=== PATIENT | male | born 1945 | race Caucasian/White ===

== ENCOUNTER 2020-12-12 03:04 | Inpatient (IN) | payer MEDICARE, OTHER ==
[~2020-12-12] VITALS: Ht 180.3 cm; Wt 93.0 kg
[~2020-12-12 03:04] MED LIST: GINKO BILOBA
[2020-12-12 03:38] LABS: BASOPHILS ABSOLUTE AUTO 0.06 K/mm3 (0.00-0.23); BASOPHILS PERCENT AUTO 1 % (0-2); EOSINOPHILS ABSOLUTE AUTO 0.22 K/mm3 (0.00-0.68); EOSINOPHILS PERCENT AUTO 2 % (0-6); Hematocrit 45.9 % (37.0-53.0); Hemoglobin 15.6 g/dL (13.5-17.5); IMMATURE GRAN ABSOLUTE AUTO 0.03 K/mm3 (0.00-0.10); IMMATURE GRAN PERCENT AUTO 0 % (0-1); LYMPHOCYTES ABSOLUTE AUTO 1.09 K/mm3 (0.84-5.20); LYMPHOCYTES PERCENT AUTO 10 % (21-46); MONOCYTES ABSOLUTE AUTO 1.16 K/mm3 (0.16-1.47); MONOCYTES PERCENT AUTO 11 % (4-13); Mean Corpuscular HGB 30.7 pg (26.0-34.0); Mean Corpuscular Volume 90 fL (80-100); Mean Platelet Volume 9.3 fL (9.1-12.4); NEUTROPHILS ABSOLUTE AUTO 8.13 K/mm3 (1.96-9.15); NEUTROPHILS PERCENT AUTO 76 % (41-73); Platelet Count 292 K/mm3 (150-400); RDW Standard Deviation 43.2 fL (35.1-46.3); Red Blood Cell Count 5.08 M/mm3 (4.30-5.90); White Blood Cell Count 10.69 K/mm3 (4.00-11.30)
[2020-12-12 03:53] LABS: International Normalized Ratio 2.89; Prothrombin Time Results 29.1 Sec (9.7-11.5)
[2020-12-12 04:21] LABS: Alanine Aminotransfer (ALT/SGP 21 U/L (12-78); Albumin, Blood 3.6 g/dL (3.4-5.0); Albumin/Globulin Ratio 0.9 (0.8-1.8); Alk Phos 34 U/L (50-136); Anion Gap 6 mmol/L (6-16); Aspartate Aminotrans (AST/SGOT 14 U/L (12-37); Bilirubin, Total 0.9 mg/dL (0.1-1.0); Blood Urea Nitrogen 23 mg/dL (8-24); CO2, Blood 24 mmol/L (21-32); Calcium, Blood 8.9 mg/dL (8.5-10.1); Chloride, Blood 105 mmol/L (98-108); Creatinine, Blood 1.53 mg/dL (0.60-1.20); Digoxin (Lanoxin) 0.56 ug/mL (0.80-2.00); Globulin, Blood 4.1 g/dL (2.2-4.0); Glomerular Filtration Rate 47 (60-); Glucose, Blood 120 mg/dL (70-99); Potassium, Blood 4.5 mmol/L (3.5-5.5); Sodium, Blood 135 mmol/L (136-145); Total Protein, Blood 7.7 g/dL (6.4-8.2)
[2020-12-12] MEDS ORDERED: WARF5 (05:40)
[2020-12-12] MEDS ORDERED: HYDCHL50 PO (05:41)
[2020-12-12] MEDS ORDERED: Coreg12.5 MG PO (05:41)
[2020-12-12] MEDS ORDERED: TAMS.4ER PO (05:41)
[2020-12-12] MEDS ORDERED: LISI20 PO (05:41)
[2020-12-12] MEDS ORDERED: WARF7.5 (05:41)
[2020-12-12] MEDS ORDERED: THERA-D2000 UNIT PO (05:42)
[2020-12-12] MEDS ORDERED: MULTI-VITAMIN1 EAC2 PO (05:42)
[2020-12-12 05:59] LABS: Source, Urine Voided
[2020-12-12 06:20] LABS: Appearance, Urine Clear (Clear); Bilirubin, Urine Neg (Neg); Blood, Urine 1+ (Neg); Color, Urine Yellow (P-Yellow); Glucose Qualitative, Urine Neg (Neg); Ketones, Urine 2+ (Neg); Leukocyte Esterase, Urine Neg (Neg); Nitrite, Urine Neg (Neg); Protein, Urine Neg (Neg); Specific Gravity, Urine 1.015 (1.003-1.022); Urobilinogen, Urine NORM (Normal)
[2020-12-12 06:21] LABS: White Blood Cells, Urine 0-2 /hpf (0-5)
[2020-12-12 06:22] LABS: Bacteria Not Seen /hpf; Squamous Epithelial Cells Rare /hpf (Few)
[2020-12-12 07:09] LABS: Influenza A, PCR NEGATIVE (NEGATIVE); Influenza B, PCR NEGATIVE (NEGATIVE); Resp Syncytial Virus, PCR NEGATIVE (NEGATIVE); SARS-Cov-2 (COVID-19) PCR, MMC NEGATIVE (NEGATIVE)
[2020-12-12 10:06] LABS: International Normalized Ratio 2.47
[2020-12-12 10:26] LABS: Prothrombin Time Results 25.1 Sec (9.7-11.5)
--- NOTE | 2020-12-12 11:01 | NUR ---
ADMIT NOTE REPORT FROM PORCELAIN ENAMEL REPAIRER AT 0800. PATIENT ARRIVED TO FLOOR ALERT/ORIENTED IN [facility]. TRANSFERRED SELF TO BED. REPORT PAIN AND NAUSEA TOLERABLE. UMBILICAL HERNIA PRESENT AND ABD TENDER. IV FLUID RUNNING. PATIENT NPO FOR PLANNED HERNIA REPAIR SURGERY WITH DR GRIFFITH. OBTAINED EKG AND GAVE AM COREG. PATIENT LEFT UNIT VIA RGATEWAY FOR PRE-OP AT 1000.
--- NOTE | 2020-12-12 11:02 | NUR ---
12/12/20 1102 Celi Manrique PT ON SCHEDULED ANTIBIOTICS
--- NOTE | 2020-12-12 13:24 | NUR ---
BACK FROM SURGERY OBTAINED REPORT FROM DEBONE PROCESSING SUPERVISOR AT BEDSIDE. PATIENT TOLERATED SURGERY WELL. REPORTS PAIN TOLERABLE AT THIS TIME. DENIES NAUSEA. ABD INCISION WITH MERCEDEZ DRESSING IN PLACE AND PATENT. SMALL MOUNT OF RED SPOTTING ON MERCEDEZ. SCD'S IN PLACE. LR RUNNING. DROWSY BUT ORIENTED. WILL START SIPS OF WATER WITH ICE CHIPS.
[2020-12-12] MEDS ORDERED: ALDACTONE25 MG PO (14:47)
[2020-12-12] MEDS ORDERED: LANOXIN125 MCG PO (14:48)
[2020-12-12] MEDS ORDERED: AMLO10 PO (14:50)
[2020-12-12] MEDS ORDERED: CARV25 PO (14:51)
--- NOTE | 2020-12-12 17:50 | NUR ---
SHIFT SUMMARY PATIENT ADMITTED TODAY 12/12/20 FROM ER. ALERT AND ORIENTED. WENT TO SURGERY WITH DR GRIFFITH TO REPAIR UMBILICAL HERNIA WITH SBO. MERCEDEZ IN PLACE WITH SMALL AMOUNT OF RED SPOTTING. REPORTS PAIN AND NAUSEA TOLERABLE. TOLERATING CLEAR LIQUIDS. IV FLUIDS RUNNING. 100 MLS URINE OUT. TELE AFIB 110-120.
--- NOTE | 2020-12-13 05:30 | NUR ---
SHIFT SUMMARY POD#1. AAOX4. DISCOMFORT AT TOLERABLE LEVEL T/O NIGHT. NAUSEA CONTROLLED WITH X1 ZOFRAN, NO EMESIS. ABD INCISION WITH MERCEDEZ C/D/I. PT REPOSITIONS SELF WELL IN BED. IVF + ABX PER ORDERS. PT CURRENTLY RESTING WELL IN BED.
[2020-12-13 15:26] LABS: BASOPHILS ABSOLUTE AUTO 0.03 K/mm3 (0.00-0.23); BASOPHILS PERCENT AUTO 0 % (0-2); EOSINOPHILS ABSOLUTE AUTO 0.05 K/mm3 (0.00-0.68); EOSINOPHILS PERCENT AUTO 0 % (0-6); Hematocrit 43.2 % (37.0-53.0); Hemoglobin 14.3 g/dL (13.5-17.5); IMMATURE GRAN ABSOLUTE AUTO 0.05 K/mm3 (0.00-0.10); IMMATURE GRAN PERCENT AUTO 0 % (0-1); LYMPHOCYTES ABSOLUTE AUTO 0.74 K/mm3 (0.84-5.20); LYMPHOCYTES PERCENT AUTO 6 % (21-46); MONOCYTES ABSOLUTE AUTO 2.02 K/mm3 (0.16-1.47); MONOCYTES PERCENT AUTO 16 % (4-13); Mean Corpuscular HGB 30.7 pg (26.0-34.0); Mean Corpuscular HGB Conc 33.1 g/dL (31.5-36.5); Mean Corpuscular Volume 93 fL (80-100); Mean Platelet Volume 9.9 fL (9.1-12.4); NEUTROPHILS ABSOLUTE AUTO 9.93 K/mm3 (1.96-9.15); NEUTROPHILS PERCENT AUTO 77 % (41-73); Platelet Count 279 K/mm3 (150-400); RDW Coefficient Variation 13.8 % (11.7-14.2); RDW Standard Deviation 46.5 fL (35.1-46.3); Red Blood Cell Count 4.66 M/mm3 (4.30-5.90); White Blood Cell Count 12.82 K/mm3 (4.00-11.30)
[2020-12-13] MEDS ORDERED: HYDR1TAB94 PO (17:27)
--- NOTE | 2020-12-13 18:02 | NUR ---
discharged REVIEWED DC PAPERWORK W/PT; VERBALIZED UNDERSTANDING. REMOVED TELE AND SENT BACK. DC'D IVS, CATHETERS INTACT. PT LEAVING UNIT IN WC ACCOMPANIED BY SISTER W/POSSESSIONS AND DC PAPERWORK IN HAND
--- NOTE | 2020-12-13 19:12 | NUR ---
Per admit trigger, I was tasked to meet with Mr. Fox to offer information/education about advanced care planning. He was not interested. I left an Advanced Directive on bedisde table. I will remain available.
== END 2020-12-13 18:05 | disposition home or self-care (01) | DRG 354 ==
LOC: ER 03:04 → SURS 05:58
PROVIDERS: Emergency Medicine; Hospitalist; Surgery; ADMIT Family Medicine
PROC: 0WQF0ZZ Repair Abdominal Wall, Open Approach (ICD-10-PCS; principal; 2020-12-12 10:30)
PROC: 3E02340 Introduction of Influenza Vaccine into Muscle, Percutaneous Approach (ICD-10-PCS; 2020-12-12 10:30)
DX: K42.0 Umbilical hernia with obstruction, without gangrene (principal); I48.20 Chronic atrial fibrillation, unspecified; R65.10 Systemic inflammatory response syndrome (SIRS) of non-infectious origin without acute organ dysfunction; E87.1 Hypo-osmolality and hyponatremia; Z79.01 Long term (current) use of anticoagulants; I12.9 Hypertensive chronic kidney disease with stage 1 through stage 4 chronic kidney disease, or unspecified chronic kidney disease; Z98.890 Other specified postprocedural states; Z91.018 Allergy to other foods; Z79.899 Other long term (current) drug therapy; N18.30 Chronic kidney disease, stage 3 unspecified; Z23 Encounter for immunization
CPT/HCPCS: 0241U; 36415; 36430; 74177; 80053; 80162; 81001; 83605; 85025; 85610; 86900; 86901; 93005; 93010; 96365-59; 96375-59; 96376-59; 99284-25; A9270; G0008; J1100; J2370; J2405; J2543; J2704; J3010; J7030; J7120; P9059; Q2038; Q9967

== ENCOUNTER 2022-08-14 10:10 | Emergency (ER) | payer OTHER ==
[~2022-08-14 10:10] MED LIST changes: +ALDACTONE25 MG PO; +AMLO10 PO; +CARV25 PO; +Coreg12.5 MG PO; +HYDCHL50 PO; +HYDR1TAB94 PO; +LANOXIN125 MCG PO; +LISI20 PO; +MULTI-VITAMIN1 EAC2 PO; +TAMS.4ER PO; +THERA-D2000 UNIT PO; +WARF5; +WARF7.5
[2022-08-14] MEDS ORDERED: AMOCLA875 PO (12:47)
== END 2022-08-14 13:21 | disposition home or self-care (01) ==
DX: L02.511 Cutaneous abscess of right hand (principal); L03.011 Cellulitis of right finger; R09.81 Nasal congestion; I10 Essential (primary) hypertension; I48.91 Unspecified atrial fibrillation; Z88.4 Allergy status to anesthetic agent; Z79.899 Other long term (current) drug therapy; Z79.01 Long term (current) use of anticoagulants

== ENCOUNTER → 2023-10-12 | Outpatient (CLI) | payer OTHER ==
[~2023-10-12] MED LIST changes: +AMOCLA875 PO
[2023-10-12 13:34] LABS: CHOL/HDL RATIO 3.8; Cholesterol 195 mg/dL (50-200); HDL Cholesterol 52 mg/dL (>39); LDL/HDL RATIO 2.3; Low Density Lipoprotein Chol 121 mg/dL (0-110); Triglycerides 112 mg/dL (30-160); Very Low Density Lipoprot Chol 22 mg/dL (6-32)
[2023-10-13 09:11] LABS: A/G RATIO 1.3 (1.2-2.2); BILIRUBIN, TOTAL 0.5 mg/dL (0.0-1.2); CALCIUM, SERUM 9.6 mg/dL (8.6-10.2); CREATININE, SERUM 1.39 mg/dL (0.76-1.27); GLOBULIN, TOTAL 3.2 g/dL (1.5-4.5); POTASSIUM, SERUM 4.3 mmol/L (3.5-5.2); PROTEIN, TOTAL, SERUM 7.3 g/dL (6.0-8.5)
== END | disposition home or self-care (01) ==
LOC: LAB SHORT 11:31
PROVIDERS: Student in an Organized Health Care Education/Training Program
DX: Z13.6 Encounter for screening for cardiovascular disorders (principal); N18.31 Chronic kidney disease, stage 3a
CPT/HCPCS: 80053; 80061

== ENCOUNTER 2024-08-17 04:36 | Inpatient (IN) | payer OTHER ==
[~2024-08-17] VITALS: Ht 180.3 cm; Wt 98.0 kg
[2024-08-17] VITALS (29 sets, daily range): BP systolic 86–141; BP diastolic 58–99
[~2024-08-17 04:36] MED LIST changes: -LISI20 PO; +LISINOPRIL PO
[2024-08-17] MEDS ORDERED: Diltiazem HCl 5 MG / ML 5ML Vial IV ONE ×2 (05:05→05:30)
[2024-08-17 05:35] LABS: BASOPHILS ABSOLUTE AUTO 0.07 K/mm3 (0.00-0.23); BASOPHILS PERCENT AUTO 1 % (0-2); EOSINOPHILS ABSOLUTE AUTO 0.27 K/mm3 (0.00-0.68); EOSINOPHILS PERCENT AUTO 2 % (0-6); Hematocrit 46.6 % (37.0-53.0); Hemoglobin 15.9 g/dL (13.5-17.5); IMMATURE GRAN ABSOLUTE AUTO 0.08 K/mm3 (0.00-0.10); IMMATURE GRAN PERCENT AUTO 1 % (0-1); LYMPHOCYTES ABSOLUTE AUTO 1.38 K/mm3 (0.84-5.20); LYMPHOCYTES PERCENT AUTO 11 % (21-46); MONOCYTES ABSOLUTE AUTO 1.85 K/mm3 (0.16-1.47); MONOCYTES PERCENT AUTO 15 % (4-13); Mean Corpuscular HGB 32.1 pg (26.0-34.0); Mean Corpuscular HGB Conc 34.1 g/dL (31.5-36.5); Mean Corpuscular Volume 94 fL (80-100); Mean Platelet Volume 9.4 fL (9.1-12.4); NEUTROPHILS ABSOLUTE AUTO 8.85 K/mm3 (1.96-9.15); NEUTROPHILS PERCENT AUTO 71 % (41-73); Platelet Count 380 K/mm3 (150-400); RDW Coefficient Variation 13.2 % (11.7-14.2); RDW Standard Deviation 46.1 fL (35.1-46.3); Red Blood Cell Count 4.95 M/mm3 (4.30-5.90)
[2024-08-17 05:48] LABS: Albumin, Blood 3.3 g/dL (3.4-5.0); Albumin/Globulin Ratio 0.7 (0.8-1.8); Bilirubin, Total 0.8 mg/dL (0.1-1.0); Bun/Creatinine Ratio 14.7 (12.0-20.0); Calcium, Blood 9.4 mg/dL (8.5-10.1); Creatinine, Blood 1.5 mg/dL (0.60-1.20); Magnesium, Blood 2.1 mg/dL (1.6-2.4); Potassium, Blood 4.6 mmol/L (3.5-5.5); Total Protein, Blood 8.3 g/dL (6.4-8.2)
[2024-08-17] MEDS ORDERED: Carvedilol 25 MG Tab PO ONE (06:20)
[2024-08-17] MEDS ORDERED: Morphine Sulfate 4 MG/1 ML Injection IV ONE (06:20)
[2024-08-17] MEDS ORDERED: LORazepam 2 MG/ML 1ML Injection IV ONE (06:20)
[2024-08-17 07:00] LABS: Digoxin (Lanoxin) 0.12 ug/mL (0.80-2.00)
[2024-08-17] MEDS ORDERED: NS 1,000 ML IV SCH ×2 (07:50→12:00)
[2024-08-17 08:13] LABS: Source, Urine Clean Catch
[2024-08-17 08:35] LABS: Bilirubin, Urine Neg (Neg); Blood, Urine Neg (Neg); Glucose Qualitative, Urine Neg (Neg); Ketones, Urine Neg (Neg); Leukocyte Esterase, Urine Neg (Neg); Nitrite, Urine Neg (Neg); Protein, Urine Neg (Neg); Specific Gravity, Urine 1.005 (1.003-1.022); Urobilinogen, Urine NORM (Normal)
[2024-08-17 08:38] LABS: Appearance, Urine Clear (Clear); Color, Urine Yellow (P-Yellow)
[2024-08-17] MEDS ORDERED: FLU VACC TS2024-25(6MOS UP)/PF 45 MCG/0.5 ML SYRINGE IM ONE (11:10)
[2024-08-17] MEDS ORDERED: Ondansetron HCl 2 MG / ML 2ML Vial IV PRN (11:15)
[2024-08-17] MEDS ORDERED: Metoprolol Tartrate 1 MG/ML 5 ML VIAL IV PRN (12:25)
[2024-08-17 12:40] LABS: International Normalized Ratio 1.05; Prothrombin Time Results 11.2 Sec (9.7-11.5)
[2024-08-17] MEDS ORDERED: HYDROmorphone HCl/Pf 1MG SYR IV PRN (14:25)
--- NOTE | 2024-08-17 15:51 | NUR ---
ARRIVAL PT ARRIVED TO UNIT PT ARRIVED TO UNIT FROM ER, ABLE TO STAND AND TRANSFER FROM [facility] TO BED. PT CONNECTED TO TELE WITH A HR MAINTAINING IN THE 120'S AFIB, 5MG AFIB. WAITED AND RECHECKED BP AND HR CONTINUED TO MAINTAIN IN THE 1 TEENS TO 140'S PER TELE. 5MG GIVEN. CONTINUED TO MAINTAIN IN THE 1TEENS TO 130'S. SPOKE WITH DR. RAYMUNDO, PROVIDER FOLLOWING. ORDERS RECIEVED TO TRANSFER TO PCU WITH DILTIAZEM DRIP. PT DENIES ANY CHEST PAIN OR SHORTNESS OF BREATH. PT UNSURE OF ALL MEDICATIONS HE TAKES OR HOW MUCH AT THIS TIME. ASKED HIS SISTER TO BRING IN MEDICATIONS. PT AA0X4 ON ASSESSMENT BUT WILL FREQUENTLY TELL STORIES UNRELATED TO SITUATION WHILE THIS RN IN ROOM. PT USING CALL LIGHT APPROPRIATLY AT THIS TIME. TOLERATING SMALL AMOUNTS OF CLEAR LIQUIDS. IVF INFUSING PER ORDERS. LARGE INGUINAL HERNIA SEEN ON LEFT SIDE OF GROIN. PT DENIES ANY PAIN IN IT AT THIS TIME AND STATES PAIN COMES WHEN HE ATTEMPTS TO REDUCE IT. DENIES NAUSEA CURRENTLY.
--- NOTE | 2024-08-17 16:32 | NUR ---
REPORT RECEIVED FROM GIVING NURSE AND AWAITING PATIENT TRANSFER VIA BED.
--- NOTE | 2024-08-17 16:40 | NUR ---
PATIENT ARRIVED TO UNIT VIA BED. SISTER CAME WITH HIM AND BROUGHT HIS HOME MEDICATIONS. VITAL SIGNS STABLE, CARDIZEM DRIP STARTED PER EMAR.
[2024-08-17] MEDS ORDERED: Bisoprolol Fuma10 MG PO (17:22)
[2024-08-17] MEDS ORDERED: ELIQUIS5 M2 PO (17:23)
[2024-08-17] MEDS ORDERED: COCONUT OIL PO (17:31)
--- NOTE | 2024-08-17 17:47 | NUR ---
END OF SHIFT SUMMARY: PATIENT ARRIVES TO UNIT AND IS ALERT AND ORIENTED X4 AND ACTIVE IN HIS CARE. IS ON TELE SHOWING AFIB WITH RATE BETWEEN 120-140'S IS ASYMPTOMATIC. BLOOD PRESSURE STABLE. SATTING >92% ON ROOM AIR, EVEN AND UNLABORED BREATHING AT REST. PATIENT WAS STARTED ON CARDIZEM DRIP PER EMAR AND TITRATED UP VIA EMAR AND PARAMETERS. PATIENTS SISTER BROUGHT IN HOME MEDICATIONS AND MED REC WAS COMPLETED. PATIENT AWARE HE WILL BE NPO TONIGHT FOR POSSIBLE SURGERY TOMORROW OR SUNDAY 12.3. NO EVENTS, WILL CONTINUE TO MONITOR UNTIL SHIFT CHANGE TO HANDOFF PATIENT TO ONCOMING ANESTHESIOLOGY TEACHER RN.
[2024-08-18] VITALS (63 sets, daily range): BP systolic 79–145; BP diastolic 50–125
[2024-08-18 04:02] LABS: BASOPHILS ABSOLUTE AUTO 0.07 K/mm3 (0.00-0.23); BASOPHILS PERCENT AUTO 1 % (0-2); EOSINOPHILS PERCENT AUTO 4 % (0-6); Hematocrit 42.3 % (37.0-53.0); Hemoglobin 14.4 g/dL (13.5-17.5); IMMATURE GRAN ABSOLUTE AUTO 0.05 K/mm3 (0.00-0.10); IMMATURE GRAN PERCENT AUTO 1 % (0-1); LYMPHOCYTES PERCENT AUTO 14 % (21-46); MONOCYTES ABSOLUTE AUTO 1.51 K/mm3 (0.16-1.47); MONOCYTES PERCENT AUTO 17 % (4-13); Mean Corpuscular HGB 31.9 pg (26.0-34.0); Mean Corpuscular Volume 94 fL (80-100); Mean Platelet Volume 9.8 fL (9.1-12.4); NEUTROPHILS ABSOLUTE AUTO 5.71 K/mm3 (1.96-9.15); NEUTROPHILS PERCENT AUTO 63 % (41-73); Platelet Count 311 K/mm3 (150-400); RDW Coefficient Variation 13.2 % (11.7-14.2); RDW Standard Deviation 45.8 fL (35.1-46.3); Red Blood Cell Count 4.51 M/mm3 (4.30-5.90); White Blood Cell Count 9.04 K/mm3 (4.00-11.30)
[2024-08-18 04:31] LABS: Albumin, Blood 2.7 g/dL (3.4-5.0); Albumin/Globulin Ratio 0.6 (0.8-1.8); Bilirubin, Total 0.6 mg/dL (0.1-1.0); Bun/Creatinine Ratio 13.1 (12.0-20.0); Calcium, Blood 8.4 mg/dL (8.5-10.1); Creatinine, Blood 1.22 mg/dL (0.60-1.20); Globulin, Blood 4.2 g/dL (2.2-4.0); Potassium, Blood 4.3 mmol/L (3.5-5.5); Total Protein, Blood 6.9 g/dL (6.4-8.2)
--- NOTE | 2024-08-18 05:54 | NUR ---
SHIFT SUMMARY PT MOSTLY ALERT AND ORIENTED WITH INTERMITTENT CONFUSION OVERNIGHT. QAGAN TAYAGUNGIN. AFIB RATE 70'S-110'S. CRADIZEM GTT @ 5 AT THIS TIME. PT HAS BEEN NPO SINCE MIDNIGHT FOR POSSIBLE REPAIR OF INGUINAL HERNIA TODAY. NO ACUTE EVENTS.
--- NOTE | 2024-08-18 09:12 | NUR ---
PATIENT WALKED TO THE BATHROOM AND STARTED TO CLIMB IN HEART RATE TOUCHING THE 170'S AND CARIDZEM DRIP WAS TURNED UP TO 10MG/HR.
--- NOTE | 2024-08-18 10:17 | NUR ---
MD CALLED TO VERIFY PATIENT IS NPO FOR THE POSSIBLE PROCEDURE THIS AFTERNOON AND A NPO DIET WAS PLACED.
--- NOTE | 2024-08-18 10:32 | NUR ---
MD CALL PLACED: CALL PLACED TO MD REGARDING HEART RATE JUMPING WHEN GOING TO THE BATHROOM AND THE NEED TO RAISE HIS CARDIZEM DRIP TO 10 AND SURGEON CALLED ABOUT THIS AFTERNOOON TIMEFRAME FOR SURGERY. AWAITING ORDERS FROM .
--- NOTE | 2024-08-18 11:56 | NUR ---
CALL FROM MD: RESIDENT CALLED BACK AND THIS RN ASKED TO POSSIBLY RESTART SOME HOME BETA BLOCKERS FOR RATE CONTROL HIS RATE IS STILL NOT CONTORLED WITH 10MG OF CARDIZEM ON THE DRIP. HE STATED THESE MEDICATIONS DIDN'T WORK PREVIOUSLY AND THAT IS WHY THE DRIP WAS STARTED. RESIDENT NOTIFIED ABOUT THE SURGERY TO BE DONE THIS AFTERNOON AND THIS IS WHY THE QUESTIONS WAS ASKED TO ENSURE RATE IS CONTROLLED FOR THE SURGERY. THIS CONVERSATION DISCUSSED WITH MICROBIOLOGY LAB MANAGER AND PRECEPTOR.
--- NOTE | 2024-08-18 12:15 | NUR ---
VOICEMAIL LEFT WITH AWAITING A CALL BACK.
[2024-08-18] MEDS ORDERED: Piperacillin/Tazobactam Sod 3.375 GM in NS 100 ML IV SCH ×2 (12:25→20:30)
[2024-08-18] MEDS ORDERED: Lactated Ringer's 1,000 ML IV SCH (12:30)
[2024-08-18] MEDS ORDERED: Rocuronium Bromide 10 MG/ML 5ML Injection IV ONE ×3 (13:01→16:06)
[2024-08-18] MEDS ORDERED: Dexamethasone Sod Phos 10 MG/ML 1ML VIAL ONE (13:01)
[2024-08-18] MEDS ORDERED: Ondansetron HCl 2 MG / ML 2ML Vial ONE (13:01)
[2024-08-18] MEDS ORDERED: FentaNYL Citrate 50 MCG/ML 5 ML Injection ONE (13:02)
[2024-08-18] MEDS ORDERED: propofoL 20 ML IV ONE (13:02)
[2024-08-18] MEDS ORDERED: Sugammadex Sodium 200 MG/2ML SDV (100 MG/ML) ONE (13:02)
[2024-08-18] MEDS ORDERED: Bupivacaine 0.5% HCl 5 MG/ML 30MLVIAL ONE (13:06)
[2024-08-18] MEDS ORDERED: Midazolam HCl 1MG / ML 2ML Vial ONE ×2 (13:34→17:03)
--- NOTE | 2024-08-18 14:57 | NUR ---
08/18/24 1457 Arely Stapleton UPON ARIVAL TO OR PATIENT HAD ARTERIAL LINE PLACE IN RIGHT WRIST BY DR. VALERO. 20G IV PLACE IN LEFT FOREARM BY MIMI EPPERSON RN.
[2024-08-18] MEDS ORDERED: FentaNYL Citrate 50 MCG/ML 2 ML Injection ONE (16:45)
--- NOTE | 2024-08-18 17:20 | NUR ---
REPORT GIVEN TO ELIANE DENISE.
--- NOTE | 2024-08-18 17:38 | NUR ---
PHONE CALL PLACED TO SISTER ABOUT FLOOR CHANGE AND UPDATE REGARDING SURGERY.
[2024-08-18] MEDS ORDERED: dexmedeTOMIDine 100 ML IV SCH (18:15)
--- NOTE | 2024-08-18 18:33 | NUR ---
TRANSFER PT ARRIVED TO ICU 7 FROM PACU. REPORT RECEIVED FROM PCU AND PACU. PT ALERT. WHEN HE FIRST ARRIVES, HE STATES THAT HE FIGURED OUT WHERE HE WAS AND HE IS IN HELL. REORIENTED PT AND FOR THE PAST HALF AN HOUR PT HAS REMEMBERED WHAT HE WAS TOLD, BUT HAS SAID THAT HE DOESN'T FULLY KNOW IF IT IS TRUE. HE REMEMBERS WHAT YEAR IT IS. HE HAS BEEN FOLLOWING COMMANDS. PUPILS 4MM AND EQUAL. IV IN R AND L FA. DILTIAZEM INFUSING AT 15MG/HR. HR 133, MAP 95, SPO2 97% ON RA. 4 SMALL INCISIONS ON ABD, C/D/I. BOWEL TONES PRESENT. PT DENIES PAIN. PT USING THE REMOTE TO WATCH TV CURRENTLY. CONTINUING TO PROVIDE REORIENTATION.
[2024-08-18] MEDS ORDERED: DEXTROMETHORPHAN/BENZOCAINE 1 EACH LOZENGE MT PRN (20:05)
--- NOTE | 2024-08-18 20:59 | NUR ---
ASSUMPTION OF CARE: RECEIVED REPORT FROM ELIANE AT 1915. PT ALERT AND ORIENTED X4, ALTHOUGH CONFUSED AT TIMES. FOLLOWS DIRECTION AND IS PLEASANT WITH CARE. PT ON RA, SPO2 MID TO HIGH 90'S, LUNGS CLEAR, DENIES SOB. ELEVATOR REPAIR MECHANIC IN PLACE, AFIB WITH HR 100-120'S. CARDIZEM INFUSING AT 15 MG/HR. SBP 90-120'S. DENIES CP/PRESSURE. VOIDING INTO URINAL IND. NO BM YET. ABLE TO STAND AT BEDSIDE WITH LINE MANAGEMENT. ARMBOARD TO RIGHT WRIST, INTACT. PIVS INTACT. INCISIONS ON ABDOMEN SHOW NO OBVIOUS SIGNS OF BLEEDING OR INFECTION. PT DENIES PAIN. BED LOW AND LOCKED, BED ALARM ON FOR SAFETY. CALL LIGHT IN REACH.
[2024-08-18] MEDS ORDERED: Metoprolol Tartrate 25 MG Tab PO ONE (23:50)
[2024-08-18] MEDS ORDERED: Calcium Carbonate 500 MG Tab Chew PO PRN (23:50)
[2024-08-19] VITALS (19 sets, daily range): BP systolic 102–132; BP diastolic 60–93
[2024-08-19] MEDS ORDERED: Metoprolol Tartrate 25 MG Tab PO ONE (05:05)
--- NOTE | 2024-08-19 05:38 | NUR ---
SHIFT SUMMARY: PT ABLE TO REST OFF AND ON T/O THE NIGHT. DENIES N/V, DENIES PAIN. INCISION SITE TO ABDOMEN REMAINS CLEAN AND DRY AND FREE FROM BLEEDING, OOZING OR REDNESS. ABDOMEN SOFT, BT ACTIVE. REMAINS ALERT AND ORIENTED T/O THE SHIFT. REMAINS ON RA WITH SPO2 MAINTAINING >95%, LUNGS CLEAR. HR MANAGER SHOWS AFIB WITH HR RANGING 90-130. DILTIAZEM AT 5 MG/HR. TOTAL OF 50 MG OF PO METOPROLOL GIVEN THIS SHIFT. SBP 90-120'S. NO C/O CHEST PAIN/PRESSURE. PT HAD C/O INDIGESTION, ORDER OBTAINED FOR TUMS, PT STATED RELIEF WITH TUMS. TOLERATING PO INTAKE. VOIDING INTO URINAL IND, YELLOW URINE. NO BM THIS SHIFT. ARMBOARD TO RIGHT WRIST REMAINS. PUNCTURE SITE FROM ARTLINE SHOWS NO SIGNS OF HEMATOMA OR BLEEDING. PIVS INTACT. BED LOW AND LOCKED, CALL LIGHT IN REACH.
[2024-08-19 06:15] LABS: BASOPHILS ABSOLUTE AUTO 0.02 K/mm3 (0.00-0.23); BASOPHILS PERCENT AUTO 0 % (0-2); EOSINOPHILS PERCENT AUTO 0 % (0-6); Hematocrit 44.7 % (37.0-53.0); Hemoglobin 14.9 g/dL (13.5-17.5); IMMATURE GRAN ABSOLUTE AUTO 0.07 K/mm3 (0.00-0.10); IMMATURE GRAN PERCENT AUTO 1 % (0-1); LYMPHOCYTES ABSOLUTE AUTO 0.67 K/mm3 (0.84-5.20); LYMPHOCYTES PERCENT AUTO 5 % (21-46); MONOCYTES ABSOLUTE AUTO 1.64 K/mm3 (0.16-1.47); MONOCYTES PERCENT AUTO 12 % (4-13); Mean Corpuscular HGB 31.4 pg (26.0-34.0); Mean Corpuscular HGB Conc 33.3 g/dL (31.5-36.5); Mean Corpuscular Volume 94 fL (80-100); Mean Platelet Volume 9.3 fL (9.1-12.4); NEUTROPHILS ABSOLUTE AUTO 11.03 K/mm3 (1.96-9.15); NEUTROPHILS PERCENT AUTO 82 % (41-73); Platelet Count 332 K/mm3 (150-400); RDW Coefficient Variation 13.3 % (11.7-14.2); Red Blood Cell Count 4.74 M/mm3 (4.30-5.90); White Blood Cell Count 13.43 K/mm3 (4.00-11.30)
[2024-08-19 06:46] LABS: Bun/Creatinine Ratio 13.7 (12.0-20.0); Calcium, Blood 8.6 mg/dL (8.5-10.1); Creatinine, Blood 1.24 mg/dL (0.60-1.20); Potassium, Blood 4.5 mmol/L (3.5-5.5)
[2024-08-19] MEDS ORDERED: Metoprolol Tartrate 50 MG Tab PO SCH (08:00)
[2024-08-19 10:15] LABS: Cancer Antigen 125 3.6 U/mL (1.5-35.0); Cancer Antigen 19-9 5.6 U/mL (2.0-37.0); Carcinoembryonic Antigen 6.2 ng/mL (0.0-3.0)
[2024-08-19] MEDS ORDERED: NS 250 ML IV PRN (12:25)
--- NOTE | 2024-08-19 17:56 | NUR ---
CARDIZEM GTT STOPPED THIS AM, TRANSITIONED TO PO METOPROLOL. NO ACUTE CHANGES THIS SHIFT. DOWNGRADED TO SURGICAL STATUS. UP IN CHAIR MOST OF THE DAY. PLAN FOR DISCHARGE TOMORROW.
[2024-08-19] MEDS ORDERED: Metoprolol Tartrate 1 MG/ML 5 ML VIAL IV ONE (18:00)
[2024-08-19] MEDS ORDERED: Metoprolol Succinate 50 MG TABCR PO ONE (21:00)
--- NOTE | 2024-08-19 21:38 | NUR ---
ASSUMPTION OF CARE/ASESSMENT: ASSUMED CARE OF PT AT 1900; BEDSIDE REPORT RECIEVED FROM SHI DENISE. PT A&O X 4, PLEASANT AND COOPERATIVE WITH CARE. UP IN RECLINER AT THIST TIME. CURRENTLY ON RA, SPO2 84<, AND DENIES SOB. AFIB ON MONITOR WITH INTERMITTEN RVR UIP TO 140-150'S WITH TALKING/ACTIVITY; AT REST HR 110-120'S. DENIES CHEST PAIN/PRESSURE. POST OP FROM HERNIA REPAIR TODAY WITH 4 LAP SITES ACROSS ABD; WOUND GLUE, C/D/I. SITES ARE SLIGHTLY WARM AND REDDENED, REDNESS OUTLINED. PT REPORTS NO PAIN, BUT HAS SOME CRAMPING IN LLQ WHEN SITTING FORWARD AND ENGAGING ABD MUSCLES. PPP X 4, ESTEVES AND SBA FOR CORD MANAGMENT. PT MOVED TO SURG RM 227 @ 2052. PT TRANSFERRED TO WHEELCHAIR SAFELY WITH SBA. REPORTED CALLED TO CATARINO DENISE TO ASSUME PRIMARY CARE. ALL PT'S BELONGINGS TRANSPORTED WITH PT. PT'S SISTER, CHENCHO, CALLED BY THIS RN TO INFORM OF TRANSFER AND ROOM ASSIGNMENT.
--- NOTE | 2024-08-19 21:54 | NUR ---
TRANSFER PT TRANSFERRED TO 227 FROM ICU AT APPROX 2100. PT ABLE TO MOVE FROM W/C WITH SBA. PT HR IN THE 140'S DURING TRANSFER. DENIES ANY CP IA PRESSURE. PT HAS X4 LAP SIES CLOSED WITH WG, SLIGHT REDNESS AROUND THEM BUT OTHERWISE C/D/I. PT DENIES ANY PAIN AT THIS TIME, VSS. CALL LIGHT WITHIN REACH
[2024-08-20] VITALS (11 sets, daily range): BP systolic 113–134; BP diastolic 68–103
--- NOTE | 2024-08-20 04:41 | NUR ---
SHIFT SUMMARY POD 2 LAP HERNIA REPAIR NO ACUTE CHANGES SINCE COMING TO THE FLOOR. PT SLEPT, DENIES ANY PAIN. PASSING GAS. TOLERATING PO INTAKE. VOIDING. PT HAS BEEN RUNNING A-FIB 120'S-130'S. X4 LAP SITES CLOSED WITH WG, C/D/I. VSS. NO OTHER CONCERNS AT THIS TIME, CALL LIGHT WITHIN REACH
[2024-08-20 05:09] LABS: BASOPHILS ABSOLUTE AUTO 0.06 K/mm3 (0.00-0.23); BASOPHILS PERCENT AUTO 0 % (0-2); EOSINOPHILS ABSOLUTE AUTO 0.13 K/mm3 (0.00-0.68); EOSINOPHILS PERCENT AUTO 1 % (0-6); Hematocrit 43.7 % (37.0-53.0); Hemoglobin 14.8 g/dL (13.5-17.5); IMMATURE GRAN ABSOLUTE AUTO 0.08 K/mm3 (0.00-0.10); IMMATURE GRAN PERCENT AUTO 1 % (0-1); LYMPHOCYTES ABSOLUTE AUTO 1.41 K/mm3 (0.84-5.20); LYMPHOCYTES PERCENT AUTO 11 % (21-46); MONOCYTES ABSOLUTE AUTO 2.14 K/mm3 (0.16-1.47); MONOCYTES PERCENT AUTO 16 % (4-13); Mean Corpuscular HGB 31.7 pg (26.0-34.0); Mean Corpuscular HGB Conc 33.9 g/dL (31.5-36.5); Mean Corpuscular Volume 94 fL (80-100); Mean Platelet Volume 9.7 fL (9.1-12.4); NEUTROPHILS ABSOLUTE AUTO 9.65 K/mm3 (1.96-9.15); NEUTROPHILS PERCENT AUTO 72 % (41-73); Platelet Count 326 K/mm3 (150-400); RDW Coefficient Variation 13.3 % (11.7-14.2); RDW Standard Deviation 45.7 fL (35.1-46.3); Red Blood Cell Count 4.67 M/mm3 (4.30-5.90); White Blood Cell Count 13.47 K/mm3 (4.00-11.30)
[2024-08-20 05:43] LABS: Bun/Creatinine Ratio 12.7 (12.0-20.0); Calcium, Blood 8.4 mg/dL (8.5-10.1); Creatinine, Blood 1.34 mg/dL (0.60-1.20); Potassium, Blood 4.2 mmol/L (3.5-5.5)
[2024-08-20] MEDS ORDERED: Metoprolol Succinate 50 MG TABCR PO SCH (07:00)
[2024-08-20] MEDS ORDERED: Apixaban 5 MG Tab PO SCH ×2 (09:00→11:00)
--- NOTE | 2024-08-20 13:07 | NUR ---
AT ABOUT 1230 COLLECTIONS ASSOCIATE PATRICA NOTIFIED THIS RN THAT PT HR TRENDING 140-150. PT DENIES CP, VSS. DR. WADSWORTH MADE AWARE. PT TO TRANSFER TO PCU AND START LOU ALVARADO. BRANDING SPECIALISTHOWIE URBINA AND RN ORACLE BRM DEVELOPER AWARE.
--- NOTE | 2024-08-20 13:53 | NUR ---
NURSE NOTE PATIENT TRANSFERED VIA WHEELCHAIR FROM SURGICAL TO PCU ROOM 08. PERSONAL BELONGINGS BROUGHT WITH PATIENT. ORIENTATED TO NEW ROOM/UNIT. DILTIAZEM DRIP STARTED AT 10 MG, HEART RATE 151 AT THIS TIME.
--- NOTE | 2024-08-20 14:20 | NUR ---
REPORT PASSED TO OVERHEAD FOREMAN. PT TRANSFERED TO PCU AT ABOUT 9408
--- NOTE | 2024-08-20 16:05 | NUR ---
DILT DRIP TIRATED UP TO 15.
[2024-08-20] MEDS ORDERED: Lactated Ringer's 250 ML IV ONE (16:35)
--- NOTE | 2024-08-20 17:35 | NUR ---
SHIFT SUMMARY DILT DRIP REMAINS AT 15 GTT. LR 250 BOLUS COMPLETE. PATIENT IS A+OX4, USES CALL LIGHT, ABLE TO MAKE NEEDS KNOWN. MOVES ALL EXTERMITIES EQUALLY IN BED. USING URINAL IN BED/ AT BEDSIDE TO VOID, URINE IN YELLOW IN COLOR. PATIENT IS A ONE PERSON TRANSFER TO ASSIT WITH LINE MANAGMENT. TOLERATING REGULAR DIET. HAD BOWEL MOVEMENT TODAY. CLEARED FROM A SURGICAL STAND POINT. WILL CONTINUE TO TREAT UNTIL END OF SHIFT. CALL LIGHT IN REACH.
[2024-08-20] MEDS ORDERED: Amoxicillin/Clavulanate K 875 MG Tab PO SCH (21:00)
[2024-08-21] VITALS (9 sets, daily range): BP systolic 114–137; BP diastolic 76–100
[2024-08-21 04:28] LABS: BASOPHILS ABSOLUTE AUTO 0.07 K/mm3 (0.00-0.23); BASOPHILS PERCENT AUTO 1 % (0-2); EOSINOPHILS ABSOLUTE AUTO 0.26 K/mm3 (0.00-0.68); EOSINOPHILS PERCENT AUTO 2 % (0-6); Hematocrit 43.9 % (37.0-53.0); Hemoglobin 14.9 g/dL (13.5-17.5); IMMATURE GRAN ABSOLUTE AUTO 0.08 K/mm3 (0.00-0.10); IMMATURE GRAN PERCENT AUTO 1 % (0-1); LYMPHOCYTES ABSOLUTE AUTO 1.37 K/mm3 (0.84-5.20); LYMPHOCYTES PERCENT AUTO 13 % (21-46); MONOCYTES ABSOLUTE AUTO 1.87 K/mm3 (0.16-1.47); MONOCYTES PERCENT AUTO 17 % (4-13); Mean Corpuscular HGB 31.6 pg (26.0-34.0); Mean Corpuscular HGB Conc 33.9 g/dL (31.5-36.5); Mean Corpuscular Volume 93 fL (80-100); Mean Platelet Volume 9.8 fL (9.1-12.4); NEUTROPHILS ABSOLUTE AUTO 7.07 K/mm3 (1.96-9.15); NEUTROPHILS PERCENT AUTO 66 % (41-73); Platelet Count 346 K/mm3 (150-400); RDW Coefficient Variation 13.2 % (11.7-14.2); RDW Standard Deviation 45.1 fL (35.1-46.3); Red Blood Cell Count 4.72 M/mm3 (4.30-5.90); White Blood Cell Count 10.72 K/mm3 (4.00-11.30)
[2024-08-21 04:52] LABS: Bun/Creatinine Ratio 14.9 (12.0-20.0); Calcium, Blood 8.7 mg/dL (8.5-10.1); Creatinine, Blood 1.21 mg/dL (0.60-1.20); Potassium, Blood 4.2 mmol/L (3.5-5.5)
--- NOTE | 2024-08-21 05:42 | NUR ---
PT SLEPT W/ NO S/S OF DISCOMFORT MOST OF THE SHIFT. REPOSITIONED INDEPENDENTLY. DENIED ANY TYPE OF DISCOMFORT THROUGHOUT SHIFT. NO SOB OR DYSPNEA NOTED. RA. AFIB; REMAINED ON CARDIZEM GTT; HR REMAINED WITHIN TARGET RANGE.
[2024-08-21] MEDS ORDERED: Metoprolol Succinate 50 MG TABCR PO SCH (08:00)
--- NOTE | 2024-08-21 14:40 | NUR ---
PT SISTER AT BEDSIDE. THIS RN UPDATED PT'S SISTER ON PLAN OF CARE RELATED TO AFIB RVR. PT EXPRESSED THAT HE DOES NOT FEEL ANY SYMPTOMS RELATED TO AFIB. THIS RN EDUCATED PT AND PT'S SISTER ON AFIB AND TREATMENTS. PT SISTER ASKED IF CARDIOLOGY WAS GOING TO BE SEING HER BROTHER. THIS RN INFORMED PT'S SISTER THAT HOSPITALIST ARE TREATING THE PT AND THAT CARDIOLOGY CAN BE CONSULTED TO ASSIST THE HOSPITLIST IF CURRENT TREATMENTS DO NOT WORK. PT AND PT'S SISTER VERBALIZED UNDERSTANDING.
--- NOTE | 2024-08-21 16:43 | NUR ---
PT TRANSFERED FROM ROOM PCU 8 TO ROOM PCU 10. PT BELONGINGS TRANFERED WITH PT.
--- NOTE | 2024-08-21 17:49 | NUR ---
SHIFT SUMMARY PT A/OX 3-4 FORGETFUL. PT ABLE TO EXPRESS NEEDS AND CALLS APPROPIATE. PT REPORTS THAT HE HAS "DEMENTIA" AND STATED THAT IS WHY HE HAS SOME TREMORS OF HIS HANDS. PT HR REMAINED AFIB WITH RATES RANGING 80-150'S, CARDIZM GTT RUNNING PER ORDER. OTHER VSS THROUGHOUT SHIFT WITH O2 SATS IN THE 90'S ON RA. NO REPORT OF CHEST PAIN/PRESSRE THROUGHOUT SHIFT. NO REPORT OF SOB/DYSPNEA THROUGHOUT SHIFT. PT SISTER TO BEDSIDE THIS SHIFT AND UPDATED ON PLAN OF CARE. CARDIZEM GTT TITRATED TO 15 MG/HR. HR DOWN TO 80-100'S AT 1650, CARDIZEM GTT TIRITED TO 10 MG/HR.
[2024-08-22] VITALS (12 sets, daily range): BP systolic 111–136; BP diastolic 62–106
--- NOTE | 2024-08-22 04:04 | NUR ---
PT AWAKE HALF THE NIGHT. DENIES PAIN. NO CP NOTED. AFIB ON CARDIZEM GTT. REMAINED IN TARGET HR MOST OF THE NIGHT, ELEVATING EVERY TIME HE STOOD UP TO URINATE AND THEN RETURNED TO TARGET HR ONCE LAYING BACK IN BED. NO RESPIRATORY DISTRESS NOTED.
[2024-08-22 04:54] LABS: Bun/Creatinine Ratio 16.9 (12.0-20.0); Calcium, Blood 8.6 mg/dL (8.5-10.1); Creatinine, Blood 1.18 mg/dL (0.60-1.20); Potassium, Blood 4.1 mmol/L (3.5-5.5)
--- NOTE | 2024-08-22 09:48 | NUR ---
PT SISTER BROUGHT PT'S HOME MEDICATIONS TO THE HOSPITAL, MEDS PLACED INTO LOCK BOX. MD NOTIFIED OF MEDS BEING BROUGHT IN.
[2024-08-22] MEDS ORDERED: Metoprolol Succinate 50 MG TABCR PO ONE ×2 (10:00→11:00)
[2024-08-22] MEDS ORDERED: Furosemide 10 MG/ML 4ML Vial IV ONE (10:05)
[2024-08-22] MEDS ORDERED: dilTIAZem HCL 120 MG CAP.CD PO SCH (10:15)
--- NOTE | 2024-08-22 13:13 | NUR ---
cardizem gtt stopped per order
[2024-08-22] MEDS ORDERED: Diltiazem HCl 180 MG Cap.CD PO ONE (13:15)
--- NOTE | 2024-08-22 17:59 | NUR ---
SHIFT SUMMARY PT A/OX3-4, CONFUSED AT TIMES. PT ABLE TO EXPRESS NEEDS AND CALLED APPROPIATE. PT INDEPNEDENT IN BED, SBA WHEN AMBULATING, TOERATED WELL. PT HR REMAINED AFIB RANGING 80-160'S. CARDIZEM GTT STOPPED AFTER PO CARDIZEM STARTED. INSTRUCTED THIS RN TO NOTIFY STAFF THAT METOPROLOL AND CARDIZEM NEED TO BE HELD IN THE MORNING AND PT IS TO BE STARTED ON HOME MED BISOPROLOL AT HIS NORMAL DOSE. METOPROLOL AND CARDIZEM DC'D. HOME MED ORDERED AND SENT TO PHARMACY FOR VERIFICATION. OTHER VSS THROUGHOUT SHIFT WITH O2 SATS IN THE 90'S ON RA. NO REPORT OF CHEST PAIN/PRESSURE AT THIS TIME. NO REPORT OF SOB/DYSPNEA THROUGHOUT SHIFT. LASIX STARTED THIS SHIFT AND STRICT I/O ORDERED.
[2024-08-23] VITALS (8 sets, daily range): BP systolic 101–140; BP diastolic 74–104
[2024-08-23 04:24] LABS: Bun/Creatinine Ratio 21.3 (12.0-20.0); Calcium, Blood 9.1 mg/dL (8.5-10.1); Creatinine, Blood 1.27 mg/dL (0.60-1.20); Magnesium, Blood 1.8 mg/dL (1.6-2.4); Potassium, Blood 4.3 mmol/L (3.5-5.5)
--- NOTE | 2024-08-23 05:27 | NUR ---
PT A/O x4. DENIED PAIN T/O SHIFT. NO CP NOTED. NO RESPIRATORY DISTRESS NOTED. PT REMAINED IN AFIB, OCCASIONALLY HR ELEVATING INTO 160-170S, BUT NOT SUSTAINING. STARTED BACK ON HOME MED TODAY. STATES HE IS READY TO GO HOME.
[2024-08-23] MEDS ORDERED: Metoprolol Succinate 50 MG TABCR PO SCH (07:00)
[2024-08-23] MEDS ORDERED: Apixaban 5 MG Tab PO SCH (07:00)
[2024-08-23] MEDS ORDERED: Diltiazem HCl 180 MG Cap.CD PO SCH (09:00)
[2024-08-23] MEDS ORDERED: dilTIAZem HCL 30 MG TAB PO SCH (14:00)
--- NOTE | 2024-08-23 15:09 | NUR ---
THIS RN CONTACTED MD AND INFORMED MD THAT PT REQUESTED A CPAP MACHINE PT REPORTED USING A CPAP AT HOME. MD TO PLACE THE ORDER.
--- NOTE | 2024-08-23 18:03 | NUR ---
SHIFT SUMMARY PT A/OX3-4 CONFUSED AT TIMES. PT ABLE TO EXPRESS NEEDS AND CALLS APPROPIATELY. PT INDEPENDENT IN BED, SBA FOR AMBULATION, TOLERATED WELL. PT HR REMAINED AFIB 100-130 WHEN AT REST, TOUCHED 150-160'S WITH AMBULATION. PT STARTED HOME DOSE BISOPROLOL PER ORDER, HR CONTINUED TO BE TACHY IN THE 130'S. PT STARTED ON CARDIZEM WELL, HR DOWN TO 100-120'S, MD AWARE. OTHER VSS THROUGHOUT SHIFT WITH O2 SATS IN THE 90'S ON RA. NO REPORT OF CHEST PAIN/PRESSURE THROUGHOUT SHIFT. NO REPORT OF SOB/DYSPNEA THROUGHOUT SHIFT. PT HOME CPAP MACHINE BROUGHT IN BY FAMILY MEMBER, RT TO SETUP MACHINE.
[2024-08-24] VITALS (8 sets, daily range): BP systolic 104–128; BP diastolic 72–111
[2024-08-24 04:45] LABS: BASOPHILS ABSOLUTE AUTO 0.08 K/mm3 (0.00-0.23); BASOPHILS PERCENT AUTO 1 % (0-2); EOSINOPHILS ABSOLUTE AUTO 0.11 K/mm3 (0.00-0.68); EOSINOPHILS PERCENT AUTO 1 % (0-6); Hematocrit 47.3 % (37.0-53.0); Hemoglobin 16.2 g/dL (13.5-17.5); IMMATURE GRAN ABSOLUTE AUTO 0.18 K/mm3 (0.00-0.10); IMMATURE GRAN PERCENT AUTO 1 % (0-1); LYMPHOCYTES ABSOLUTE AUTO 1.55 K/mm3 (0.84-5.20); LYMPHOCYTES PERCENT AUTO 12 % (21-46); MONOCYTES ABSOLUTE AUTO 1.78 K/mm3 (0.16-1.47); MONOCYTES PERCENT AUTO 13 % (4-13); Mean Corpuscular HGB 31.5 pg (26.0-34.0); Mean Corpuscular HGB Conc 34.2 g/dL (31.5-36.5); Mean Corpuscular Volume 92 fL (80-100); Mean Platelet Volume 9.5 fL (9.1-12.4); NEUTROPHILS ABSOLUTE AUTO 9.55 K/mm3 (1.96-9.15); NEUTROPHILS PERCENT AUTO 72 % (41-73); Platelet Count 442 K/mm3 (150-400); RDW Coefficient Variation 13.2 % (11.7-14.2); RDW Standard Deviation 44.9 fL (35.1-46.3); Red Blood Cell Count 5.15 M/mm3 (4.30-5.90); White Blood Cell Count 13.25 K/mm3 (4.00-11.30)
[2024-08-24 05:19] LABS: Bun/Creatinine Ratio 27.2 (12.0-20.0); Calcium, Blood 9.1 mg/dL (8.5-10.1); Creatinine, Blood 1.25 mg/dL (0.60-1.20); Potassium, Blood 4.1 mmol/L (3.5-5.5)
[2024-08-24] MEDS ORDERED: dilTIAZem HCL 60 MG TAB PO SCH (10:00)
[2024-08-24] MEDS ORDERED: Diltiazem HCl 5 MG / ML 5ML Vial IV ONE (10:00)
[2024-08-24] MEDS ORDERED: dilTIAZem HCL 30 MG TAB PO ONE (17:00)
--- NOTE | 2024-08-24 18:15 | NUR ---
End of shift note Pt has been resting for much of the day. Pt reports that he struggles to take pills and feels like he will vomit when taking meds. Pt did have some dry heaving with morning meds. MD was notified during rounds. Pt also reported that he likes to drink a liquid diet to keep his weight down. Education given on the importance of proper nutrition. HR meds were increased this shift. HR has been 100-120 while at rest. 120-130 while OOB. Pt is able to make needs known, call light is within reach.
--- NOTE | 2024-08-24 20:09 | NUR ---
START OF SHIFT ASSUMED CARE AT APPROXIMATELY 1900. PT RESTING COMFORTABLY IN BED W/O ANY COMPLAINTS. PT DENIES ANY PAIN, ON RA, RESTING IN BED. HR RANGING FROM 80'S-100'S WHILE IN ROOM. WILL CONTINUE PLAN OF CARE.
[2024-08-25] VITALS (7 sets, daily range): BP systolic 101–128; BP diastolic 61–87
--- NOTE | 2024-08-25 04:20 | NUR ---
SHIFT SUMMARY PT REMAINED IN BED RESTING COMFORTABLY OVER NIGHT. PT WORE CPAP INTERMITTENTLY THROUGHOUT THE NIGHT. PT HR SLOWLY INCREASED TO 130'S WITH THE HIGHEST RATE BRIEFLY GOING INTO 160. MD NOTIFIED, BETBLOCKER HOME MEDICATION GIVEN EARLY PER MD. WILL CONTINUE PLAN OF CARE.
[2024-08-25 05:21] LABS: BASOPHILS ABSOLUTE AUTO 0.11 K/mm3 (0.00-0.23); BASOPHILS PERCENT AUTO 1 % (0-2); EOSINOPHILS ABSOLUTE AUTO 0.19 K/mm3 (0.00-0.68); EOSINOPHILS PERCENT AUTO 1 % (0-6); Hematocrit 44.9 % (37.0-53.0); Hemoglobin 15.7 g/dL (13.5-17.5); IMMATURE GRAN ABSOLUTE AUTO 0.22 K/mm3 (0.00-0.10); IMMATURE GRAN PERCENT AUTO 2 % (0-1); LYMPHOCYTES ABSOLUTE AUTO 1.98 K/mm3 (0.84-5.20); LYMPHOCYTES PERCENT AUTO 14 % (21-46); MONOCYTES ABSOLUTE AUTO 2.03 K/mm3 (0.16-1.47); MONOCYTES PERCENT AUTO 15 % (4-13); Mean Corpuscular HGB 31.9 pg (26.0-34.0); Mean Corpuscular Volume 91 fL (80-100); Mean Platelet Volume 9.9 fL (9.1-12.4); NEUTROPHILS PERCENT AUTO 67 % (41-73); Platelet Count 443 K/mm3 (150-400); RDW Coefficient Variation 13.1 % (11.7-14.2); RDW Standard Deviation 42.9 fL (35.1-46.3); Red Blood Cell Count 4.92 M/mm3 (4.30-5.90); White Blood Cell Count 13.83 K/mm3 (4.00-11.30)
[2024-08-25 05:52] LABS: Bun/Creatinine Ratio 33.1 (12.0-20.0); Calcium, Blood 9.1 mg/dL (8.5-10.1); Creatinine, Blood 1.18 mg/dL (0.60-1.20); Magnesium, Blood 1.8 mg/dL (1.6-2.4); Potassium, Blood 4.2 mmol/L (3.5-5.5)
[2024-08-25] MEDS ORDERED: dilTIAZem HCL 30 MG TAB PO SCH (07:30)
[2024-08-25] MEDS ORDERED: Magnesium Sulf 2 GM/Water 50ML 50 ML IV SCH (11:30)
[2024-08-25] MEDS ORDERED: dilTIAZem HCL 30 MG TAB PO ONE (12:50)
[2024-08-25] MEDS ORDERED: dilTIAZem HCL 60 MG TAB PO SCH (13:00)
--- NOTE | 2024-08-25 17:42 | NUR ---
End of shift note Pt has been resting for much of the day. Pt was OOB for a shower this morning and ate meals while in the chair. Pt reported that pills were easier to take today. No gagging noted. PO was encouraged. HR meds were increased this shift. HR has been 80-120 while at rest. 120-130 while OOB. Pt is able to make needs known, call light is within reach.
[2024-08-26 00:41] VITALS: BP 122/86
[2024-08-26 04:18] VITALS: BP 106/93
[2024-08-26 04:19] LABS: BASOPHILS ABSOLUTE AUTO 0.12 K/mm3 (0.00-0.23); BASOPHILS PERCENT AUTO 1 % (0-2); EOSINOPHILS ABSOLUTE AUTO 0.25 K/mm3 (0.00-0.68); EOSINOPHILS PERCENT AUTO 2 % (0-6); Hematocrit 43.6 % (37.0-53.0); Hemoglobin 14.9 g/dL (13.5-17.5); IMMATURE GRAN ABSOLUTE AUTO 0.19 K/mm3 (0.00-0.10); IMMATURE GRAN PERCENT AUTO 2 % (0-1); LYMPHOCYTES ABSOLUTE AUTO 1.88 K/mm3 (0.84-5.20); LYMPHOCYTES PERCENT AUTO 16 % (21-46); MONOCYTES PERCENT AUTO 14 % (4-13); Mean Corpuscular HGB 31.2 pg (26.0-34.0); Mean Corpuscular HGB Conc 34.2 g/dL (31.5-36.5); Mean Corpuscular Volume 91 fL (80-100); Mean Platelet Volume 9.6 fL (9.1-12.4); NEUTROPHILS PERCENT AUTO 65 % (41-73); Platelet Count 447 K/mm3 (150-400); RDW Standard Deviation 43.6 fL (35.1-46.3); Red Blood Cell Count 4.78 M/mm3 (4.30-5.90); White Blood Cell Count 11.94 K/mm3 (4.00-11.30)
[2024-08-26 04:41] LABS: Bun/Creatinine Ratio 29.6 (12.0-20.0); Calcium, Blood 8.2 mg/dL (8.5-10.1); Creatinine, Blood 1.35 mg/dL (0.60-1.20); Potassium, Blood 4.1 mmol/L (3.5-5.5)
--- NOTE | 2024-08-26 06:22 | NUR ---
PT STABLE THROUGHOUT SHIFT NO C/O CP OR SOB. PT HR WAS CONTROLLED IN 80-90 AT BEGINNING OF SHIFT BUT DID CLIMB TO 110-130 TOWARD END. PT WAS GIVEN ALL SCHEDULED RATE CONTROL MEDS W/O PROBLEM. PT AOX4 BUT HAS ODD AFFECT AND RANDOM CONVERSATION THAT SEEM TO JUMP IDEA TO IDEA. PT IS ABLE TO MAKE NEEDS KNOWN AND USES CALL LIGHT APPROPRIATELY. ABD LAP SITES CLOSED AND INTACT, NO S/S INFECTION. PT URINATING AT BEDSIDE WITH URINAL INDEPENDENTLY WITH GOOD OUTPUT. PT DID ATTEMPT TO WEAR CPAP BUT DID NOT HAVE IT ON FOR VERY LONG.
[2024-08-26 07:35] VITALS: BP 109/82
[2024-08-26] MEDS ORDERED: Diltiazem HCl 180 MG Cap.CD PO SCH (08:00)
--- NOTE | 2024-08-26 09:02 | NUR ---
NURSING PCU DAYSHIFT: Assumed care of pt at approx 0700. A/O, flat affect, cooperative w/care. Ambulates w/minimal assistance, mild general weakness. Skin fragile though intact w/no breakdown, abd lap sites x4 from recent hernia repair, no swelling/redness. Denies any pain/discomfort at rest. Tele in place, afib, HR 90-130's, SBP 109 prior to a.m. meds, trace BLE edema, no c/o CP/pressure. L/S fairly cta t/o w/fine bibasilar crackles, denies dyspnea, occ cough producing thick/clear sputum, O2 sat upper 90's on RA. Abd SNT, BT+, voiding w/o difficulty using urinal. PIV, s/l. No s/s of acute distress. Seen by PMD, new d/o received. Pt denies any current questions/needs, educated on deep breathing exercises, pt verbalized and demonstrated understanding. Currently OOB in chair, call light in reach, cont to monitor for changes.
[2024-08-26 11:11] VITALS: BP 110/66
[2024-08-26 15:38] VITALS: BP 118/77
--- NOTE | 2024-08-26 17:53 | NUR ---
DAY SHIFT SUMMARY PT ALERT AND ORIENTED THIS SHIFT COMMUNICATING APPRORPIATELY W STAFF. PT'S MONITOR SHOWING AFIB 90'S-130'S THIS SHIFT. PT UP AMBULATING AROUND THE UNIT THIS SHIFT W HIS HR GOING UP HIGH 160, PT DENYING FEELING SOB OR LIGHTHEADED WHILE AMBULATING. BP WNL AND STABLE. SPO2 >92% ON RM AIR. PT AFEBRILE THIS SHIFT. PT DENYING PAIN OR NAUSEA THIS SHIFT. WILL REPORT TO ONCOMING RN.
[2024-08-26 19:57] VITALS: BP 113/71
[2024-08-26] MEDS ORDERED: Docusate Sodium 100 MG Cap PO SCH (21:00)
[2024-08-27 00:55] VITALS: BP 122/75
[2024-08-27 04:19] LABS: BASOPHILS ABSOLUTE AUTO 0.12 K/mm3 (0.00-0.23); BASOPHILS PERCENT AUTO 1 % (0-2); EOSINOPHILS ABSOLUTE AUTO 0.33 K/mm3 (0.00-0.68); EOSINOPHILS PERCENT AUTO 3 % (0-6); Hematocrit 42.2 % (37.0-53.0); Hemoglobin 14.4 g/dL (13.5-17.5); IMMATURE GRAN PERCENT AUTO 2 % (0-1); LYMPHOCYTES PERCENT AUTO 17 % (21-46); MONOCYTES ABSOLUTE AUTO 1.64 K/mm3 (0.16-1.47); MONOCYTES PERCENT AUTO 14 % (4-13); Mean Corpuscular HGB Conc 34.1 g/dL (31.5-36.5); Mean Corpuscular Volume 91 fL (80-100); Mean Platelet Volume 9.4 fL (9.1-12.4); NEUTROPHILS ABSOLUTE AUTO 7.25 K/mm3 (1.96-9.15); NEUTROPHILS PERCENT AUTO 64 % (41-73); Platelet Count 448 K/mm3 (150-400); RDW Coefficient Variation 13.2 % (11.7-14.2); Red Blood Cell Count 4.64 M/mm3 (4.30-5.90); White Blood Cell Count 11.44 K/mm3 (4.00-11.30)
[2024-08-27 04:38] LABS: Albumin, Blood 2.3 g/dL (3.4-5.0); Albumin/Globulin Ratio 0.6 (0.8-1.8); Bilirubin, Total 0.6 mg/dL (0.1-1.0); Bun/Creatinine Ratio 31.2 (12.0-20.0); Calcium, Blood 8.4 mg/dL (8.5-10.1); Creatinine, Blood 1.09 mg/dL (0.60-1.20); Globulin, Blood 4.1 g/dL (2.2-4.0); Potassium, Blood 4.1 mmol/L (3.5-5.5); Total Protein, Blood 6.4 g/dL (6.4-8.2)
[2024-08-27 06:03] VITALS: BP 109/76
--- NOTE | 2024-08-27 07:25 | NUR ---
PT HEART RATE/RHYTHM CONTINUES TO BE AFIB BETWEEN 90-110S. HR RATE OCCASSIONALY CLIMBS TO 130S AT REST. NO C/O CP/SOB OR PALPITATIONS. PT VITAL SIGNS OTHERWISE WNL. PT INDEPENDENT WITH URINAL AT BEDSIDE. PT ODD AFFECT AND TANGENTIAL CONVERSATIONS CONTINUE, PT IS AOX4 THOUGH. ABD LAP SITES CLOSED AND INTACT NO S/S INFECTION.
--- NOTE | 2024-08-27 08:30 | NUR ---
INITIAL ASSESSMENT: Patient is awake lying in bed, he is alert and oriented x4. He denies pain at this time. He is in A-Fib with a rate in the 120s, he denies chest pain or pressure. He heart rate does go up with activity. To the best of the patients knowledge he does not have any SOB or lethargy when his heart rate increases with activity. LS CTA, biox is high 90s on RA. He has a C-Pap at the bedside. Patient states he has not had a sleep study, he bought this from his neighbor. He states this makes him more relaxed. BT+, he states he had a BM yesterday. He has incisions to his abd x4, CDI with steri-strips. He states one of the incisions hurt when he coughs, he has been educated on splinting when he coughs. PPP. BLE have a brownish discoloration from below the knee down. He has trace edema to his BLE. VSS. Residents and Dr. Lilly at the bedside to assess and talk with the patient, plan is for DC today.
[2024-08-27 08:36] VITALS: BP 114/71
[2024-08-27] MEDS ORDERED: JARDIANCE10 MG PO (10:02)
[2024-08-27] MEDS ORDERED: DOCU100 PO (10:02)
[2024-08-27] MEDS ORDERED: DILTIAZEM 24HR360 M2 PO (10:02)
--- NOTE | 2024-08-27 11:11 | NUR ---
Discharge: Patient and sister verbalize understanding of discharge instructions. [facility] Patient to home with sister via WC.
== END 2024-08-27 11:00 | disposition home or self-care (01) | DRG 351 ==
LOC: ER 04:36 → PCU 11:08 → ERHOLD 11:08 → ICUE 11:08 → SURS 14:18 → PCU 16:37 → ICUE 08-18 17:30 → SURS 08-19 20:45 → PCU 08-20 13:50
PROVIDERS: Emergency Medicine; Family Medicine; Student in an Organized Health Care Education/Training Program; Surgery; ADMIT Family Medicine
PROC: 8E0W4CZ Robotic Assisted Procedure of Trunk Region, Percutaneous Endoscopic Approach (ICD-10-PCS; 2024-08-18)
PROC: 0YQ64ZZ Repair Left Inguinal Region, Percutaneous Endoscopic Approach (ICD-10-PCS; principal; 2024-08-18 13:00)
DX: K40.30 Unilateral inguinal hernia, with obstruction, without gangrene, not specified as recurrent (principal); I13.0 Hypertensive heart and chronic kidney disease with heart failure and stage 1 through stage 4 chronic kidney disease, or unspecified chronic kidney disease; I42.0 Dilated cardiomyopathy; I50.32 Chronic diastolic (congestive) heart failure; I48.19 Other persistent atrial fibrillation; I48.91 Unspecified atrial fibrillation; I27.20 Pulmonary hypertension, unspecified; N18.31 Chronic kidney disease, stage 3a; N40.0 Benign prostatic hyperplasia without lower urinary tract symptoms; Z90.89 Acquired absence of other organs; Z98.890 Other specified postprocedural states; Z88.8 Allergy status to other drugs, medicaments and biological substances; Z79.811 Long term (current) use of aromatase inhibitors; Z79.899 Other long term (current) drug therapy; Z79.01 Long term (current) use of anticoagulants
CPT/HCPCS: 36415; 74177; 80048; 80053; 80162; 81003; 82378; 83605; 83690; 83735; 85025; 85520; 85610; 85730; 86301; 86304; 86850; 86900; 86901; 93005; 93010; 94762; 96374-59; 96375; 99285-25; A9270; C1781; J1100; J1940; J2060; J2250; J2270; J2405; J2543; J2704; J3010; J3475; J7030; J7050; J7120; Q9967

== ENCOUNTER → 2025-04-27 | Outpatient (CLI) | payer OTHER ==
[~2025-04-27] MED LIST changes: +Bisoprolol Fuma10 MG PO; +COCONUT OIL PO; +DILTIAZEM 24HR360 M2 PO; +DOCU100 PO; +ELIQUIS5 M2 PO; +JARDIANCE10 MG PO
[2025-04-27 15:18] LABS: Protein, Urine Quantitative 17.0 mg/dL (0.0-11.9)
[2025-04-27 15:23] LABS: Microalbumin, Urine Quant. <5.000 mg/L (0.000-20.000)
== END | disposition home or self-care (01) ==
LOC: LAB SHORT 07:00 → LAB 07:00 → LAB FUT 04-24 10:45
PROVIDERS: Internal Medicine Nephrology
DX: N18.30 Chronic kidney disease, stage 3 unspecified (principal); D63.1 Anemia in chronic kidney disease; N25.81 Secondary hyperparathyroidism of renal origin; E55.9 Vitamin D deficiency, unspecified; E29.1 Testicular hypofunction; N40.1 Benign prostatic hyperplasia with lower urinary tract symptoms; R39.9 Unspecified symptoms and signs involving the genitourinary system; R76.9 Abnormal immunological finding in serum, unspecified; R94.5 Abnormal results of liver function studies; R94.6 Abnormal results of thyroid function studies
CPT/HCPCS: 81050; 82043; 82570; 84156

== ENCOUNTER → 2025-07-22 | Outpatient (CLI) | payer OTHER ==
[2025-07-22 19:34] LABS: Ferritin, Serum 86.0 ng/mL (26-388); Total Iron Binding Capacity 344.0 ug/dL (250-450)
== END | disposition home or self-care (01) ==
LOC: LAB 13:38 → LAB SHORT 13:38
PROVIDERS: Internal Medicine Hematology & Oncology
DX: E61.1 Iron deficiency (principal)
CPT/HCPCS: 82728; 83540; 83550